=== PATIENT | female | born 1955 | race Caucasian/White ===

== ENCOUNTER 2017-04-13 10:34 | Emergency (ER) | payer MEDICARE, BC ==
--- NOTE | 2017-04-16 08:15 | ER ---
ADMIT: 04/13/2017 RM/LOC: [facility] MR#: [id number] [address] [facility] [address] [place], [place] [address] HARDIK GALVAN [address] [place] [place], [place] [address] Emergency Room Report SEX: F AGE: 61 : 1955 DATE: 04/13/2017 TIME: 1034 hours. Please refer to my T-sheet for complete H and P. HISTORY OF PRESENT ILLNESS: Briefly, the patient is a 61-year-old, who comes in with shaky speech problems, it started last night, so it has been over through the night it was still here today. She has a complex history. She has severe MS. She recently had that issue where she did not have her Soma for a couple days. She just got it back. She has been under more stress. No weakness on one side or the other. PHYSICAL EXAMINATION: VITAL SIGNS: Blood pressure 100/47, pulse 91, respirations 17, temp 99.3, sat 96%. GENERAL: She is no acute distress. HEENT: Grossly normal. LUNGS: Clear. HEART: Regular. ABDOMEN: Soft. SKIN: No rash. NEURO: She does have some expressive aphasia. I do give her a stroke scale of around 2. She has some general weakness from her MS, but no other. She was able to walk in here. EMERGENCY DEPARTMENT COURSE: CAT scan of her brain showed no obvious changes although very complex with her severe MS. Chest x-ray showed no acute findings. CBC normal. Chemistries normal except CO2 of 34, BUN 4. Coags normal. Tox screen was positive for marijuana, otherwise negative. UA normal. EKG was sinus rhythm, no changes, rate 85. Gave her 4 aspirin's. She did not want to stay in the hospital. She refused. Her speech improved slightly, but she still was having some expressive aphasia issues. Her and her were ADMIT: 04/13/2017 RM/LOC: [facility] MR#: [id number] [address] [address] HARDIK GALVAN [address] [place] [address] Emergency Room Report SEX: F AGE: 61 : 1955 both in the room when I talked about going home and having a major stroke and/or even . Concerns were that this could be preventable if she would stay and may benefit from getting an echo and carotid ultrasounds. Again, she was going to go home. At this point, I talked to Charles. We are going to try to set things up to expedite followup. I recommend an aspirin a day. ASSESSMENT: 1. Slurred speech. 2. MS (multiple sclerosis). 3. AMA (against medical advice). PLAN: Started her on aspirin. Follow up with Charles. Return if she changes her mind. Gamaliel Giles MD/ winifred JOB #: [id number] CC: Gamaliel Giles MD, Attending Physician
== END 2017-04-13 12:42 | disposition home or self-care (01) ==
LOC: ER 10:34
DX: R47.81 Slurred speech (principal); G35 Multiple sclerosis; F17.210 Nicotine dependence, cigarettes, uncomplicated; Z88.5 Allergy status to narcotic agent; Z79.82 Long term (current) use of aspirin; Z79.899 Other long term (current) drug therapy

== ENCOUNTER 2017-05-22 16:13 | Emergency (ER) | payer MEDICARE, BC ==
--- NOTE | 2017-05-31 15:17 | ER ---
ADMIT: 05/22/2017 RM/LOC: ER [facility] MR#: [id number] [address] [address] MANDY HARDIK M [address] [place] [address] Emergency Room Report SEX: F AGE: 62 : 1955 DATE: 05/22/2017 ADDENDUM: CHIEF COMPLAINT: Dehydration. HISTORY OF PRESENT ILLNESS: This 62-year-old, who said she just does not feel like she has been keeping up with her fluids. When this happened, she gets muscle spasms in her calves. She has been having this and just really has not been able to hydrate herself. I did do a CBC and chemistries here in the emergency room where CBC was normal except for hemoglobin of 11. Chemistries were normal except for glucose of 115. Her GFR is 70. She did receive a liter of fluids here in the emergency room. She feels significantly better. Harlan okay to go home. IMPRESSION: 1. Calf muscle spasms. 2. Anemia chronic. She was improved at discharge. NELLA Epps / Elvin Santo MD / winifred JOB #: [id number] CC: Elvin Santo MD, Attending Physician Bucky Soto MD, Family Physician
== END 2017-05-22 17:40 | disposition home or self-care (01) ==
LOC: ER 16:13
DX: M62.831 Muscle spasm of calf (principal); D64.9 Anemia, unspecified; F17.210 Nicotine dependence, cigarettes, uncomplicated; Z90.710 Acquired absence of both cervix and uterus; Z98.890 Other specified postprocedural states; Z88.5 Allergy status to narcotic agent; Z87.81 Personal history of (healed) traumatic fracture; Z79.82 Long term (current) use of aspirin; Z79.899 Other long term (current) drug therapy